=== PATIENT | male | born 1965 | race African-American/Black ===

== ENCOUNTER 2017-02-17 00:46 | Emergency (ER) | payer OTHER ==
[~2017-02-17] VITALS: Ht 172.7 cm; Wt 63.5 kg
[~2017-02-17 00:46] MED LIST: CARVEDILOL3.125 MG PO; DIABETA5 MG PO; GABAPENTIN300 MG; INSULIN; LANTUS 10100 UNITS/ SC; LISINOPRIL10 MG; LISINOPRIL5 MG PO; METFORMIN HCL1000 M1; NICOTINE PATCH1 EAC1 TD; PRAVASTATIN SOD40 MG PO; ULTRAM50 MG PO
[2017-02-17 00:54] LABS: POTASSIUM 3.8 mEq/L (3.7-5.4)
[2017-02-17 01:09] LABS: HEMATOCRIT 35.4 % (38.0-50.0); MCH 32.5 PG (29.0-34.0); MCV 92.9 FL (86-99); MEAN PLAT.VOLUME 10.8 uM^3 (9.0-12.4); PLATELET COUNT 177 K/uL (156-360); RBC DIS.WIDTH-CV 12.3 % (11.8-14.6); RBC DIS.WIDTH-SD 42.1 % (39-53); RED BLOOD COUNT 3.81 M/uL (4.00-5.50); WHITE BLOOD COUNT 8.2 K/uL (4.1-10.2)
[2017-02-17 01:19] LABS: CHLORIDE 107 mEq/L (99-109); POTASSIUM 3.8 mEq/L (3.7-5.4); SODIUM 138 mEq/L (136-147)
[2017-02-17 01:20] LABS: GLUCOSE 239 mg/dL (70-99)
[2017-02-17 01:22] LABS: ANION GAP 10 MEQ/L (2-14)
[2017-02-17 01:24] LABS: GFR ESTIMATE (CALCULATED) > 59 mL/min/
[2017-02-17 01:25] LABS: UREA NITROGEN (BUN) 25 mg/dL (9-23)
[2017-02-17 01:31] LABS: TROP-I INTERPRETATION NEGATIVE; TROPONIN-I < 0.01 ng/mL (0.0-0.30)
[2017-02-17 01:51] LABS: PROTHROMBIN TIME 10.6 (9.2-11.2); PTT 28.4 (25-32)
[2017-02-17 01:52] LABS: HDL CHOLESTEROL 66 MG/DL (Desirable>=40); LDL CHOLESTEROL 71 mg/dL (Desirable<100); NON-HDL CHOLESTEROL 97 mg/dL (Desirable<160); TOTAL CHOLESTEROL 163 mg/dL (Desirable<200); TRIGLYCERIDES 132 MG/DL (Normal: <150)
[2017-02-17 08:09] VITALS: BP 137/95
== END 2017-02-17 08:09 | disposition short-term general hospital (02) ==
LOC: EME → EDBD 00:46 → EME 08:09
PROVIDERS: Emergency Medicine
DX: I62.9 Nontraumatic intracranial hemorrhage, unspecified (principal); G81.91 Hemiplegia, unspecified affecting right dominant side; R29.726 NIHSS score 26; E11.65 Type 2 diabetes mellitus with hyperglycemia; Z79.4 Long term (current) use of insulin; D64.9 Anemia, unspecified; I10 Essential (primary) hypertension; F17.200 Nicotine dependence, unspecified, uncomplicated; Z89.512 Acquired absence of left leg below knee
CPT/HCPCS: 70450; 71010; 80047; 80048; 80061; 83605; 84484; 85027; 85610; 85730; 93005; 99281; 99285; J7030

== ENCOUNTER 2017-06-13 16:26 | Emergency (ER) | payer OTHER ==
[~2017-06-13] VITALS: Ht 167.6 cm; Wt 59.0 kg
[2017-06-13 18:43] VITALS: BP 101/70
== END 2017-06-13 18:44 | disposition home or self-care (01) ==
LOC: EME 16:26
DX: K94.23 Gastrostomy malfunction (principal); I10 Essential (primary) hypertension; Z86.73 Personal history of transient ischemic attack (TIA), and cerebral infarction without residual deficits; Z89.512 Acquired absence of left leg below knee; Z87.891 Personal history of nicotine dependence
CPT/HCPCS: 99281; 99283

== ENCOUNTER 2017-06-27 19:36 | Observation (INO) | payer OTHER ==
[~2017-06-27] VITALS: Ht 167.6 cm; Wt 55.0 kg
[2017-06-27 20:10] LABS: HEMATOCRIT 32.2 % (38.0-50.0); MCHC 34.2 G/DL (30.0-36.0); MCV 93.6 FL (86-99); MEAN PLAT.VOLUME 9.3 uM^3 (9.0-12.4); PLATELET COUNT 204 K/uL (156-360); RBC DIS.WIDTH-CV 12.7 % (11.8-14.6); RBC DIS.WIDTH-SD 43.5 % (39-53); RED BLOOD COUNT 3.44 M/uL (4.00-5.50); WHITE BLOOD COUNT 5.2 K/uL (4.1-10.2)
[2017-06-27 20:20] LABS: CHLORIDE 101 mEq/L (99-109); POTASSIUM 3.9 mEq/L (3.7-5.4); SODIUM 136 mEq/L (136-147)
[2017-06-27 20:22] LABS: GLUCOSE 284 mg/dL (70-99)
[2017-06-27 20:24] LABS: ANION GAP 9 MEQ/L (2-14)
[2017-06-27 20:26] LABS: GFR ESTIMATE (CALCULATED) > 59 mL/min/
[2017-06-27 20:27] LABS: UREA NITROGEN (BUN) 24 mg/dL (9-23)
[2017-06-27 20:30] LABS: TROP-I INTERPRETATION NEGATIVE; TROPONIN-I < 0.01 ng/mL (0.0-0.30)
[2017-06-27] MEDS ORDERED: FLUOXETINE HCL20 MG PO (21:29)
[2017-06-27] MEDS ORDERED: IRON325 M1 PO (21:29)
[2017-06-27] MEDS ORDERED: LITE COAT ASPI325 M1 PO (21:29)
[2017-06-27] MEDS ORDERED: ASCORBIC ACID500 M3 PO (21:30)
[2017-06-27] MEDS ORDERED: FAMOTIDINE20 MG PO (21:30)
[2017-06-27] MEDS ORDERED: FOLIC ACID1 MG PO (21:30)
[2017-06-27] MEDS ORDERED: LISINOPRIL2.5 MG PO (21:30)
[2017-06-28 00:23] VITALS: BP 95/55
[2017-06-28 03:37] LABS: TROP-I INTERPRETATION NEGATIVE; TROPONIN-I 0.02 ng/mL (0.0-0.30)
[2017-06-28 04:13] VITALS: BP 112/70
[2017-06-28 04:16] LABS: ADD MIUA? NO; BILIRUBIN NEGATIVE; BLOOD NEGATIVE; COLOR YELLOW ((YELLOW)); GLUCOSE (STRIP) >=500; KETONES NEGATIVE; LEUKOCYTES NEGATIVE; NITRITE NEGATIVE; PROTEIN (STRIP) NEGATIVE; SPECIFIC GRAVITY 1.021 (1.000-1.030); UCUL ADDED? NO; UROBILINOGEN 0.2 MG/DL (0.2-1.0)
[2017-06-28 04:57] LABS: AMPHETAMINES QUANT VALUE 0 NG/ML; BARBITUATES QUANT VALUE 0 NG/ML; BENZODIAZEPINES QUANT VALUE 0 NG/ML; BENZODIAZEPINES, URINE SCREEN Negative (200 ng/mL); MARIJUANA QUANT VALUE 0 NG/ML; OPIATES QUANTITATIVE VALUE 0 NG/ML; PHENCYCLIDINE QUANT VALUE 0 NG/ML
[2017-06-28 08:24] LABS: TROP-I INTERPRETATION NEGATIVE; TROPONIN-I < 0.01 ng/mL (0.0-0.30)
[2017-06-28 08:40] VITALS: BP 118/68
[2017-06-28 11:58] VITALS: BP 121/77
[2017-06-28 12:26] LABS: POINT-OF-CARE METER ID UU13113700
[2017-06-28 16:00] VITALS: BP 117/69
[2017-06-28 16:49] LABS: POINT-OF-CARE METER ID UU13113831
[2017-06-28 20:23] LABS: HDL CHOLESTEROL 71 MG/DL (Desirable>=40); LDL CHOLESTEROL 78 mg/dL (Desirable<100); NON-HDL CHOLESTEROL 87 mg/dL (Desirable<160); TOTAL CHOLESTEROL 158 mg/dL (Desirable<200); TRIGLYCERIDES 45 MG/DL (Normal: <150)
== END 2017-06-28 21:29 | disposition home or self-care (01) ==
LOC: EME 19:36 → EDOF 22:29 → 5WEST 22:29 → EDOF 22:29 → ENRESERV 22:32 → 5WEST 23:52
PROVIDERS: Hospitalist; Physician Assistant Medical
DX: R07.89 Other chest pain (principal); I11.0 Hypertensive heart disease with heart failure; I50.22 Chronic systolic (congestive) heart failure; R94.31 Abnormal electrocardiogram [ECG] [EKG]; I42.9 Cardiomyopathy, unspecified; I69.351 Hemiplegia and hemiparesis following cerebral infarction affecting right dominant side; I69.320 Aphasia following cerebral infarction; I73.9 Peripheral vascular disease, unspecified; E78.5 Hyperlipidemia, unspecified; E10.42 Type 1 diabetes mellitus with diabetic polyneuropathy; Z91.19 Patient's noncompliance with other medical treatment and regimen; N40.0 Benign prostatic hyperplasia without lower urinary tract symptoms; I07.1 Rheumatic tricuspid insufficiency; I34.0 Nonrheumatic mitral (valve) insufficiency; Z89.512 Acquired absence of left leg below knee; Z87.891 Personal history of nicotine dependence; Z87.898 Personal history of other specified conditions; Z79.4 Long term (current) use of insulin; Z79.82 Long term (current) use of aspirin
CPT/HCPCS: 71020; 80048; 80061; 80306 90; 81003; 82948; 84484; 85027; 93005; 99281; 99285; G0378; J1650; J1815

== ENCOUNTER 2017-07-10 11:19 | Emergency (ER) | payer OTHER ==
[~2017-07-10] VITALS: Ht 167.6 cm; Wt 60.3 kg
[~2017-07-10 11:19] MED LIST changes: +ASCORBIC ACID500 M3 PO; +FAMOTIDINE20 MG PO; +FLUOXETINE HCL20 MG PO; +FOLIC ACID1 MG PO; +IRON325 M1 PO; +LISINOPRIL2.5 MG PO; +LITE COAT ASPI325 M1 PO
[2017-07-10 13:28] VITALS: BP 140/93
== END 2017-07-10 15:26 | disposition home or self-care (01) ==
LOC: EME 11:19
DX: M25.511 Pain in right shoulder (principal); I10 Essential (primary) hypertension; E11.9 Type 2 diabetes mellitus without complications; Z79.4 Long term (current) use of insulin; Z86.73 Personal history of transient ischemic attack (TIA), and cerebral infarction without residual deficits; Z87.891 Personal history of nicotine dependence; Z89.512 Acquired absence of left leg below knee
CPT/HCPCS: 73030; 93005; 99281; 99283

== ENCOUNTER 2017-09-14 13:07 | Emergency (ER) | payer OTHER ==
[~2017-09-14] VITALS: Ht 167.6 cm; Wt 58.3 kg
[2017-09-14 15:20] LABS: EOSINOPHIL COUNT 0.1 K/uL (0-0.3); HEMATOCRIT 32.2 % (38.0-50.0); IMMATURE GRANULOCYTE (%) 0.3 % (0.0-0.7); INSTRUMENT ABS NEUTROPHIL CT 5.1 K/uL; LYMPHOCYTE COUNT 1.4 K/uL (1.0-2.8); MCHC 35.1 G/DL (30.0-36.0); MCV 94.2 FL (86-99); MEAN PLAT.VOLUME 9.9 uM^3 (9.0-12.4); MONOCYTE (%) 10.2 % (3-12); MONOCYTE COUNT 0.8 K/uL (0-0.8); NEUTROPHIL (%) 69.6 % (45-76); NEUTROPHIL COUNT 5.1 K/uL (1.8-6.4); PLATELET COUNT 273 K/uL (156-360); RBC DIS.WIDTH-CV 12.1 % (11.8-14.6); RBC DIS.WIDTH-SD 41.6 % (39-53); RED BLOOD COUNT 3.42 M/uL (4.00-5.50); WHITE BLOOD COUNT 7.4 K/uL (4.1-10.2)
[2017-09-14 15:33] LABS: CHLORIDE 102 mEq/L (99-109); POTASSIUM 4.1 mEq/L (3.7-5.4); SODIUM 141 mEq/L (136-147)
[2017-09-14 15:35] LABS: GLUCOSE 149 mg/dL (70-99)
[2017-09-14 15:37] LABS: ANION GAP 12 MEQ/L (2-14); TOTAL BILIRUBIN 0.6 mg/dL (0.0-1.0)
[2017-09-14 15:39] LABS: ALKALINE PHOSPHATASE 91 IU/L (3-129); GFR ESTIMATE (CALCULATED) > 59 mL/min/
[2017-09-14 15:40] LABS: UREA NITROGEN (BUN) 12 mg/dL (9-23)
[2017-09-14 15:43] LABS: LIPASE 2 U/L (1.0-51.0)
[2017-09-14 17:57] LABS: ADD MIUA? YES; BILIRUBIN NEGATIVE; BLOOD SMALL; COLOR YELLOW ((YELLOW)); GLUCOSE (STRIP) NEGATIVE; KETONES 5; LEUKOCYTES NEGATIVE; NITRITE NEGATIVE; PROTEIN (STRIP) 30
[2017-09-14] MEDS ORDERED: MIRALAX255 GM PO (18:10)
[2017-09-14 18:24] LABS: BACTERIA RARE /HPF; EPITHELIAL CELLS RARE /HPF; MUCUS TRACE /LPF; UCUL ADDED? NO; WHITE BLOOD CELLS 0-5 /HPF (0-5)
[2017-09-14 19:02] VITALS: BP 135/75
== END 2017-09-14 19:37 | disposition home or self-care (01) ==
LOC: EME 13:07
PROVIDERS: Emergency Medicine
DX: K59.00 Constipation, unspecified (principal); S72.001A Fracture of unspecified part of neck of right femur, initial encounter for closed fracture; X58.XXXA Exposure to other specified factors, initial encounter; I10 Essential (primary) hypertension; Z93.1 Gastrostomy status; Z89.512 Acquired absence of left leg below knee; Z86.73 Personal history of transient ischemic attack (TIA), and cerebral infarction without residual deficits; Z87.891 Personal history of nicotine dependence
CPT/HCPCS: 74177; 80053; 81003; 83605; 83690; 85025; 99281; 99285; J7030

== ENCOUNTER → 2017-10-10 | Outpatient (CLI) | payer OTHER ==
[~2017-10-10] MED LIST changes: +MIRALAX255 GM PO
== END | disposition home or self-care (01) ==
LOC: AMB 09-27 15:00
PROC: 0DP6XUZ Removal of Feeding Device from Stomach, External Approach (ICD-10-PCS; principal; 2017-10-10)
DX: Z43.1 Encounter for attention to gastrostomy (principal); Z86.73 Personal history of transient ischemic attack (TIA), and cerebral infarction without residual deficits; E11.9 Type 2 diabetes mellitus without complications; I10 Essential (primary) hypertension; Z89.619 Acquired absence of unspecified leg above knee; Z79.82 Long term (current) use of aspirin; Z79.4 Long term (current) use of insulin; F17.200 Nicotine dependence, unspecified, uncomplicated
CPT/HCPCS: 99211

== ENCOUNTER → 2017-10-17 | Outpatient (CLI) | payer OTHER | END | disposition home or self-care (01) | LOC: CDC 13:51 | DX: Z01.810 Encounter for preprocedural cardiovascular examination (principal); R00.0 Tachycardia, unspecified; I51.7 Cardiomegaly; R94.31 Abnormal electrocardiogram [ECG] [EKG] | CPT/HCPCS: 93000 ==

== ENCOUNTER 2017-10-23 16:00 | Inpatient (IN) | payer OTHER ==
[~2017-10-23] VITALS: Ht 175.3 cm; Wt 45.9 kg
[2017-10-23 17:12] LABS: MCHC 35.5 G/DL (30.0-36.0); MCV 90.1 FL (86-99); PLATELET COUNT 403 K/uL (156-360); RBC DIS.WIDTH-CV 13.2 % (11.8-14.6); RBC DIS.WIDTH-SD 42.5 % (39-53); RED BLOOD COUNT 3.44 M/uL (4.00-5.50); WHITE BLOOD COUNT 18.3 K/uL (4.1-10.2)
[2017-10-23 17:20] LABS: ALBUMIN 2.8 g/dL (3.2-4.8); CHLORIDE 106 mEq/L (99-109); SODIUM 146 mEq/L (136-147)
[2017-10-23 17:22] LABS: GLUCOSE 142 mg/dL (70-99)
[2017-10-23 17:23] LABS: TOTAL PROTEIN 9.6 g/dL (6.4-8.3)
[2017-10-23 17:24] LABS: TOTAL BILIRUBIN 0.5 mg/dL (0.0-1.0)
[2017-10-23 17:26] LABS: ALKALINE PHOSPHATASE 129 IU/L (3-129); CREATININE 0.8 mg/dL (0.6-1.3); GFR ESTIMATE (CALCULATED) > 59 mL/min/ (58.99-99999)
[2017-10-23 17:28] LABS: AST (GOT) 19 IU/L (2-34)
[2017-10-23 17:29] LABS: ALT (GPT) 16 IU/L (3-49); UREA NITROGEN (BUN) 42 mg/dL (9-23)
[2017-10-23 17:35] LABS: TROP-I INTERPRETATION NEGATIVE; TROPONIN-I < 0.01 ng/mL (0.0-0.30)
[2017-10-23 17:54] LABS: BASOPHIL (%) 0.1 % (0-1); EOSINOPHIL (%) 0 % (0-5); IMMATURE GRANULOCYTE (%) 0.9 % (0.0-0.7); LYMPHOCYTE (%) 6.4 % (15-42); LYMPHOCYTE COUNT 1.2 K/uL (1.0-2.8); MONOCYTE (%) 5.4 % (3-12); NEUTROPHIL (%) 87.2 % (45-76); PLAT.SUFFICIENCY INCREASED
[2017-10-23] MEDS ORDERED: VITAMIN D31000 UNIT PO (18:30)
[2017-10-24] VITALS: BP 128/58
[2017-10-24 07:18] LABS: HEMOGLOBIN 9.7 G/DL (12.5-16.6); MCHC 33.4 G/DL (30.0-36.0); MCV 92.7 FL (86-99); PLATELET COUNT 379 K/uL (156-360); RBC DIS.WIDTH-CV 13.6 % (11.8-14.6); RBC DIS.WIDTH-SD 44.7 % (39-53); RED BLOOD COUNT 3.13 M/uL (4.00-5.50); WHITE BLOOD COUNT 13.8 K/uL (4.1-10.2)
[2017-10-24 07:24] LABS: CHLORIDE 113 MEQ/L (99-109); CREATININE 0.5 MG/DL (0.6-1.3); GFR ESTIMATE (CALCULATED) > 59 mL/min/ (58.99-99999); POTASSIUM 3.3 MEQ/L (3.7-5.4); SODIUM 152 MEQ/L (136-147); UREA NITROGEN (BUN) 23 mg/dL (9-23)
[2017-10-24 07:28] LABS: GLUCOSE 79 mg/dL (70-99)
[2017-10-24 07:49] VITALS: BP 130/74
[2017-10-24 08:02] LABS: ABS NEUTROPHIL COUNT 12.5; BAND NEUTROPHILS 2.6 % (0-8.0); EOSINOPHIL ABS CT 0; LYMPHOCYTES 5.3 % (15.0-45.0); MONOCYTES 4.4 % (0-9.0); SEG.NEUTROPHILS 87.7 % (46.0-76.0)
[2017-10-24 16:17] VITALS: BP 101/57; BP 133/68
[2017-10-25] VITALS: BP 116/82
[2017-10-25 07:42] VITALS: BP 105/61
[2017-10-25 10:05] LABS: INTER. NORMALIZED RATIO 1.5
[2017-10-25 10:34] LABS: CREATININE 0.5 MG/DL (0.6-1.3); GFR ESTIMATE (CALCULATED) > 59 mL/min/ (58.99-99999); VANCOMYCIN, TROUGH 10.1 MCG/ML (10-20)
[2017-10-25 10:36] LABS: CHLORIDE 106 MEQ/L (99-109); CREATININE 0.4 MG/DL (0.6-1.3); GFR ESTIMATE (CALCULATED) > 59 mL/min/ (58.99-99999); GLUCOSE 202 mg/dL (70-99); SODIUM 147 MEQ/L (136-147); UREA NITROGEN (BUN) 8 mg/dL (9-23)
[2017-10-25 16:45] VITALS: BP 106/60
[2017-10-25 23:18] VITALS: BP 114/63
[2017-10-26 07:37] VITALS: BP 120/67
[2017-10-26 09:47] LABS: CHLORIDE 104 MEQ/L (99-109); CREATININE 0.3 MG/DL (0.6-1.3); GFR ESTIMATE (CALCULATED) > 59 mL/min/ (58.99-99999); GLUCOSE 192 mg/dL (70-99); POTASSIUM 3.2 MEQ/L (3.7-5.4); SODIUM 143 MEQ/L (136-147); UREA NITROGEN (BUN) 4 mg/dL (9-23)
[2017-10-26 10:40] LABS: HEMATOCRIT 27.4 % (38.0-50.0); HEMOGLOBIN 9.2 G/DL (12.5-16.6); MCH 31.9 PG (29.0-34.0); MCHC 33.6 G/DL (30.0-36.0); MCV 95.1 FL (86-99); PLATELET COUNT 325 K/uL (156-360); RBC DIS.WIDTH-CV 13.7 % (11.8-14.6); RBC DIS.WIDTH-SD 46.7 % (39-53); RED BLOOD COUNT 2.88 M/uL (4.00-5.50); WHITE BLOOD COUNT 8.6 K/uL (4.1-10.2)
[2017-10-26 16:39] VITALS: BP 123/73
[2017-10-26 22:54] VITALS: BP 123/73
[2017-10-27 06:38] LABS: CHLORIDE 97 MEQ/L (99-109); CREATININE 0.3 MG/DL (0.6-1.3); GFR ESTIMATE (CALCULATED) > 59 mL/min/ (58.99-99999); GLUCOSE 167 mg/dL (70-99); POTASSIUM 3.5 MEQ/L (3.7-5.4); SODIUM 137 MEQ/L (136-147); UREA NITROGEN (BUN) 3 mg/dL (9-23)
[2017-10-27 07:40] VITALS: BP 118/71
[2017-10-27 15:00] VITALS: BP 121/73
[2017-10-28 00:21] VITALS: BP 124/74
[2017-10-28 06:35] LABS: CHLORIDE 97 MEQ/L (99-109); CREATININE 0.4 MG/DL (0.6-1.3); GFR ESTIMATE (CALCULATED) > 59 mL/min/ (58.99-99999); GLUCOSE 187 mg/dL (70-99); POTASSIUM 3.6 MEQ/L (3.7-5.4); SODIUM 137 MEQ/L (136-147); UREA NITROGEN (BUN) 3 mg/dL (9-23)
[2017-10-28 08:24] VITALS: BP 123/77
[2017-10-28 18:18] LABS: HEMATOCRIT 33.5 % (38.0-50.0); MCH 31.6 PG (29.0-34.0); MCHC 33.4 G/DL (30.0-36.0); MCV 94.6 FL (86-99); PLATELET COUNT 350 K/uL (156-360); RBC DIS.WIDTH-CV 13.3 % (11.8-14.6); RBC DIS.WIDTH-SD 45.3 % (39-53); WHITE BLOOD COUNT 8.6 K/uL (4.1-10.2)
[2017-10-28 18:19] LABS: HEMOGLOBIN 11.2 G/DL (12.5-16.6); RED BLOOD COUNT 3.54 M/uL (4.00-5.50)
[2017-10-28 18:24] LABS: CHLORIDE 96 MEQ/L (99-109); CREATININE 0.5 MG/DL (0.6-1.3); GFR ESTIMATE (CALCULATED) > 59 mL/min/ (58.99-99999); GLUCOSE 147 mg/dL (70-99); MAGNESIUM 1.5 mg/dl (1.3-2.7); SODIUM 135 MEQ/L (136-147); UREA NITROGEN (BUN) 4 mg/dL (9-23)
[2017-10-28 18:27] LABS: POTASSIUM 4.4 MEQ/L (3.7-5.4)
[2017-10-28 18:30] VITALS: BP 106/73
[2017-10-28 20:00] VITALS: BP 89/56
[2017-10-29 00:16] VITALS: BP 125/77
[2017-10-29 04:12] VITALS: BP 119/74
[2017-10-29 07:08] VITALS: BP 119/77
[2017-10-29 10:17] LABS: ALBUMIN 2.4 g/dL (3.2-4.8); CHLORIDE 100 mEq/L (99-109); SODIUM 138 mEq/L (136-147)
[2017-10-29 10:19] LABS: GLUCOSE 196 mg/dL (70-99)
[2017-10-29 10:21] LABS: TOTAL BILIRUBIN 0.4 mg/dL (0.0-1.0)
[2017-10-29 10:22] LABS: TOTAL PROTEIN 7.5 g/dL (6.4-8.3)
[2017-10-29 10:23] LABS: ALKALINE PHOSPHATASE 91 IU/L (3-129); CREATININE 0.6 mg/dL (0.6-1.3); GFR ESTIMATE (CALCULATED) > 59 mL/min/ (58.99-99999)
[2017-10-29 10:24] LABS: UREA NITROGEN (BUN) 3 mg/dL (9-23)
[2017-10-29 10:25] LABS: AST (GOT) 17 IU/L (2-34)
[2017-10-29 10:26] LABS: ALT (GPT) 7 IU/L (3-49)
[2017-10-29 11:27] VITALS: BP 119/79
[2017-10-29 15:22] VITALS: BP 123/73
[2017-10-29 19:06] VITALS: BP 91/51
[2017-10-30 00:15] VITALS: BP 108/65
[2017-10-30 03:51] VITALS: BP 111/55
[2017-10-30 05:33] LABS: BASOPHIL (%) 0.1 % (0-1); EOSINOPHIL (%) 0.5 % (0-5); EOSINOPHIL COUNT 0.1 K/uL (0-0.3); HEMATOCRIT 28.1 % (38.0-50.0); HEMOGLOBIN 9.4 G/DL (12.5-16.6); IMMATURE GRANULOCYTE (%) 0.4 % (0.0-0.7); LYMPHOCYTE (%) 9.1 % (15-42); LYMPHOCYTE COUNT 1.4 K/uL (1.0-2.8); MCH 31.4 PG (29.0-34.0); MCHC 33.5 G/DL (30.0-36.0); MONOCYTE (%) 5.5 % (3-12); MONOCYTE COUNT 0.9 K/uL (0-0.8); NEUTROPHIL (%) 84.4 % (45-76); NEUTROPHIL COUNT 13.1 K/uL (1.8-6.4); PLATELET COUNT 261 K/uL (156-360); RBC DIS.WIDTH-CV 13.5 % (11.8-14.6); RBC DIS.WIDTH-SD 45.7 % (39-53); RED BLOOD COUNT 2.99 M/uL (4.00-5.50); WHITE BLOOD COUNT 15.6 K/uL (4.1-10.2)
[2017-10-30 06:02] LABS: CHLORIDE 99 MEQ/L (99-109); CREATININE 0.4 MG/DL (0.6-1.3); GFR ESTIMATE (CALCULATED) > 59 mL/min/ (58.99-99999); POTASSIUM 3.9 MEQ/L (3.7-5.4); SODIUM 137 MEQ/L (136-147); UREA NITROGEN (BUN) 4 mg/dL (9-23)
[2017-10-30 06:09] LABS: GLUCOSE 99 mg/dL (70-99)
[2017-10-30 08:26] VITALS: BP 107/65
[2017-10-30 12:00] VITALS: BP 111/53
[2017-10-30 16:21] VITALS: BP 129/89
[2017-10-30 19:15] VITALS: BP 131/74
[2017-10-31] VITALS (7 sets, daily range): BP systolic 109–138; BP diastolic 56–77
[2017-10-31 05:56] LABS: HEMATOCRIT 25.5 % (38.0-50.0); HEMOGLOBIN 8.6 G/DL (12.5-16.6); MCH 31.3 PG (29.0-34.0); MCHC 33.7 G/DL (30.0-36.0); MCV 92.7 FL (86-99); PLATELET COUNT 260 K/uL (156-360); RBC DIS.WIDTH-CV 13.5 % (11.8-14.6); RBC DIS.WIDTH-SD 45.1 % (39-53); RED BLOOD COUNT 2.75 M/uL (4.00-5.50); WHITE BLOOD COUNT 16.6 K/uL (4.1-10.2)
[2017-10-31 06:26] LABS: CHLORIDE 97 MEQ/L (99-109); CREATININE 0.3 MG/DL (0.6-1.3); GFR ESTIMATE (CALCULATED) > 59 mL/min/ (58.99-99999); GLUCOSE 155 mg/dL (70-99); POTASSIUM 3.5 MEQ/L (3.7-5.4); SODIUM 133 MEQ/L (136-147); UREA NITROGEN (BUN) 3 mg/dL (9-23)
[2017-10-31 07:00] LABS: ANISOCYTOSIS 1+; BASOPHIL (%) 0.1 % (0-1); EOSINOPHIL (%) 0.2 % (0-5); IMMATURE GRANULOCYTE (%) 0.8 % (0.0-0.7); LYMPHOCYTE (%) 4.5 % (15-42); LYMPHOCYTE COUNT 0.7 K/uL (1.0-2.8); MACROCYTES 1+; MONOCYTE (%) 3.4 % (3-12); MONOCYTE COUNT 0.6 K/uL (0-0.8); NEUTROPHIL COUNT 15.1 K/uL (1.8-6.4)
[2017-10-31 08:39] LABS: FERRITIN 1172 NG/ML (22-322)
[2017-10-31 10:00] LABS: IRON 16 MCG/DL (35-150); TRANSFERRIN SATUR. 21 % (20-55)
[2017-10-31 11:28] LABS: INTER. NORMALIZED RATIO 1.5
[2017-10-31 12:27] LABS: FOLIC ACID (FOLATE) 5.7 NG/ML (5.0-22.0)
[2017-11-01 03:36] VITALS: BP 124/68
[2017-11-01 05:51] LABS: BASOPHIL (%) 0.2 % (0-1); EOSINOPHIL (%) 0.5 % (0-5); EOSINOPHIL COUNT 0.1 K/uL (0-0.3); HEMATOCRIT 25.5 % (38.0-50.0); HEMOGLOBIN 8.8 G/DL (12.5-16.6); IMMATURE GRANULOCYTE (%) 0.5 % (0.0-0.7); LYMPHOCYTE (%) 7.6 % (15-42); MCHC 34.5 G/DL (30.0-36.0); MCV 92.7 FL (86-99); MONOCYTE (%) 4.3 % (3-12); MONOCYTE COUNT 0.5 K/uL (0-0.8); NEUTROPHIL (%) 86.9 % (45-76); NEUTROPHIL COUNT 11.1 K/uL (1.8-6.4); PLATELET COUNT 273 K/uL (156-360); RBC DIS.WIDTH-CV 13.7 % (11.8-14.6); RBC DIS.WIDTH-SD 44.8 % (39-53); RED BLOOD COUNT 2.75 M/uL (4.00-5.50); WHITE BLOOD COUNT 12.7 K/uL (4.1-10.2)
[2017-11-01 06:18] LABS: ALBUMIN 1.8 G/DL (3.2-4.8); ALKALINE PHOSPHATASE 96 IU/L (3-129); ALT (GPT) 3 IU/L (3-49); AST (GOT) 10 IU/L (2-34); CHLORIDE 98 MEQ/L (99-109); CREATININE 0.3 MG/DL (0.6-1.3); GFR ESTIMATE (CALCULATED) > 59 mL/min/ (58.99-99999); GLUCOSE 137 mg/dL (70-99); POTASSIUM 3.4 MEQ/L (3.7-5.4); SODIUM 137 MEQ/L (136-147); TOTAL BILIRUBIN 0.3 MG/DL (0.0-1.0); TOTAL PROTEIN 6.1 G/DL (6.4-8.3); UREA NITROGEN (BUN) 3 mg/dL (9-23)
[2017-11-01 07:09] VITALS: BP 116/69
[2017-11-01 11:46] LABS: MAGNESIUM 1.8 mg/dl (1.3-2.7)
[2017-11-01 11:48] VITALS: BP 116/70
[2017-11-01 16:02] VITALS: BP 102/89
[2017-11-01 19:26] VITALS: BP 118/58
[2017-11-02] VITALS (7 sets, daily range): BP systolic 96–147; BP diastolic 56–87
[2017-11-02 04:17] LABS: C DIFF TOXIN NEGATIVE (NEGATIVE)
[2017-11-02 08:17] LABS: HEMOGLOBIN 8.3 G/DL (12.5-16.6); MCH 30.4 PG (29.0-34.0); MCHC 33.2 G/DL (30.0-36.0); MCV 91.6 FL (86-99); PLATELET COUNT 319 K/uL (156-360); RBC DIS.WIDTH-CV 13.5 % (11.8-14.6); RBC DIS.WIDTH-SD 44.5 % (39-53); RED BLOOD COUNT 2.73 M/uL (4.00-5.50); WHITE BLOOD COUNT 10.4 K/uL (4.1-10.2)
[2017-11-02 08:44] LABS: CHLORIDE 96 MEQ/L (99-109); CREATININE 0.3 MG/DL (0.6-1.3); GFR ESTIMATE (CALCULATED) > 59 mL/min/ (58.99-99999); GLUCOSE 187 mg/dL (70-99); POTASSIUM 3.9 MEQ/L (3.7-5.4); UREA NITROGEN (BUN) 3 mg/dL (9-23)
[2017-11-02 08:57] LABS: SODIUM 130 MEQ/L (136-147)
[2017-11-03 04:51] VITALS: BP 107/58
[2017-11-03 07:10] LABS: HEMATOCRIT 24.2 % (38.0-50.0); HEMOGLOBIN 8.1 G/DL (12.5-16.6); IMM.RETIC FRACTION 23.1 % (3-19); MCH 31.3 PG (29.0-34.0); MCHC 33.5 G/DL (30.0-36.0); MCV 93.4 FL (86-99); PLATELET COUNT 243 K/uL (156-360); RBC DIS.WIDTH-CV 13.7 % (11.8-14.6); RED BLOOD COUNT 2.59 M/uL (4.00-5.50); RETIC HGB EQUIVALENT 28.1 (28-36); RETICULOCYTE COUNT 2.1 % (0.5-1.8); WHITE BLOOD COUNT 8.6 K/uL (4.1-10.2)
[2017-11-03 07:11] VITALS: BP 102/55
[2017-11-03 07:28] LABS: CHLORIDE 96 MEQ/L (99-109); CREATININE 0.3 MG/DL (0.6-1.3); GFR ESTIMATE (CALCULATED) > 59 mL/min/ (58.99-99999); GLUCOSE 154 mg/dL (70-99); POTASSIUM 3.8 MEQ/L (3.7-5.4); SODIUM 133 MEQ/L (136-147); UREA NITROGEN (BUN) 5 mg/dL (9-23)
[2017-11-03 14:09] VITALS: BP 130/67
[2017-11-03 15:26] VITALS: BP 112/58
[2017-11-03 19:35] VITALS: BP 106/58
[2017-11-04 00:52] VITALS: BP 99/57
[2017-11-04 07:10] LABS: HEMATOCRIT 26.1 % (38.0-50.0); HEMOGLOBIN 8.7 G/DL (12.5-16.6); MCH 31.2 PG (29.0-34.0); MCHC 33.3 G/DL (30.0-36.0); MCV 93.5 FL (86-99); RBC DIS.WIDTH-CV 13.7 % (11.8-14.6); RBC DIS.WIDTH-SD 45.8 % (39-53); RED BLOOD COUNT 2.79 M/uL (4.00-5.50); WHITE BLOOD COUNT 8.1 K/uL (4.1-10.2)
[2017-11-04 07:14] VITALS: BP 117/65
[2017-11-04 07:33] LABS: CHLORIDE 96 MEQ/L (99-109); CREATININE 0.3 MG/DL (0.6-1.3); GFR ESTIMATE (CALCULATED) > 59 mL/min/ (58.99-99999); GLUCOSE 209 mg/dL (70-99); POTASSIUM 4.1 MEQ/L (3.7-5.4); SODIUM 134 MEQ/L (136-147); UREA NITROGEN (BUN) 8 mg/dL (9-23)
[2017-11-04 07:44] LABS: PLATELET COUNT 369 K/uL (156-360)
[2017-11-04 14:58] VITALS: BP 123/68
[2017-11-04 23:36] VITALS: BP 113/56
[2017-11-05 07:33] VITALS: BP 108/63
[2017-11-05] MEDS ORDERED: PRAVASTATIN SOD40 MG GT (13:08)
[2017-11-05] MEDS ORDERED: LEVETIRACE100 MG/1 M GT (13:19)
[2017-11-05] MEDS ORDERED: NOVOLOG PE100 UNITS/ SC (13:20)
[2017-11-05] MEDS ORDERED: ANCEF,KEFZOL1 GM IM (13:20)
[2017-11-05 15:13] VITALS: BP 130/68
[2017-11-05 15:30] VITALS: BP 183/71
== END 2017-11-05 16:41 | DRG 871 ==
LOC: EME 16:00 → 5SOUTH 18:21 → 5EAST 18:21 → EDOF 18:21 → 4EAST 18:21 → ENRESERV 19:03 → 5EAST 21:03 → ENRESERV 10-28 18:14 → 4EAST 10-28 18:17 → ENRESERV 11-02 20:01 → 5SOUTH 11-02 22:07
PROVIDERS: Emergency Medicine; Hospitalist; Internal Medicine; Specialist; Student in an Organized Health Care Education/Training Program
PROC: 0DH63UZ Insertion of Feeding Device into Stomach, Percutaneous Approach (ICD-10-PCS; principal; 2017-10-31)
DX: A41.9 Sepsis, unspecified organism (principal); J69.0 Pneumonitis due to inhalation of food and vomit; R13.10 Dysphagia, unspecified; E11.622 Type 2 diabetes mellitus with other skin ulcer; E87.0 Hyperosmolality and hypernatremia; E11.51 Type 2 diabetes mellitus with diabetic peripheral angiopathy without gangrene; I08.1 Rheumatic disorders of both mitral and tricuspid valves; T87.89 Other complications of amputation stump; B37.0 Candidal stomatitis; E86.0 Dehydration; E46 Unspecified protein-calorie malnutrition; I10 Essential (primary) hypertension; E55.9 Vitamin D deficiency, unspecified; L89.029 Pressure ulcer of left elbow, unspecified stage; L97.929 Non-pressure chronic ulcer of unspecified part of left lower leg with unspecified severity; J44.9 Chronic obstructive pulmonary disease, unspecified; D63.8 Anemia in other chronic diseases classified elsewhere; R62.7 Adult failure to thrive; Z68.1 Body mass index [BMI] 19.9 or less, adult; E78.5 Hyperlipidemia, unspecified; Y95 Nosocomial condition; N40.1 Benign prostatic hyperplasia with lower urinary tract symptoms; Y83.5 Amputation of limb(s) as the cause of abnormal reaction of the patient, or of later complication, without mention of misadventure at the time of the procedure; Z87.891 Personal history of nicotine dependence; E87.1 Hypo-osmolality and hyponatremia; E87.6 Hypokalemia; G81.91 Hemiplegia, unspecified affecting right dominant side; I63.9 Cerebral infarction, unspecified; R47.01 Aphasia; R64 Cachexia; J98.11 Atelectasis; D50.9 Iron deficiency anemia, unspecified; I61.9 Nontraumatic intracerebral hemorrhage, unspecified; R56.9 Unspecified convulsions; S91.301A Unspecified open wound, right foot, initial encounter; Z86.73 Personal history of transient ischemic attack (TIA), and cerebral infarction without residual deficits; F32.9 Major depressive disorder, single episode, unspecified; Z89.512 Acquired absence of left leg below knee; Z74.01 Bed confinement status
CPT/HCPCS: 70450; 71045; 71046; 80048; 80048 91; 80053; 80202; 81003; 81256 90; 82565; 82607; 82728; 82746; 82948; 83540; 83605; 83735; 84466; 84484; 85025; 85027; 85046; 85610; 87040; 87077; 87186; 87493; 87502; 87801; 92526 GN; 92610 GN; 93005; 94799; 95819; 99202; 99281; 99284; A6260; C1753; J0690; J1450; J1650; J1815; J1953; J2060; J2543; J3370; J3475; J3480; J7030; J7050

== ENCOUNTER 2018-01-23 10:57 | Inpatient (IN) | payer OTHER ==
[~2018-01-23] VITALS: Ht 165.1 cm; Wt 38.7 kg
[~2018-01-23 10:57] MED LIST changes: +ANCEF,KEFZOL1 GM IM; +LEVETIRACE100 MG/1 M GT; +NOVOLOG PE100 UNITS/ SC; +PRAVASTATIN SOD40 MG GT; +VITAMIN D31000 UNIT PO
[2018-01-23 12:21] LABS: HEMATOCRIT 31.6 % (38.0-50.0); HEMOGLOBIN 10.6 G/DL (12.5-16.6); MCH 30.9 PG (29.0-34.0); MCHC 33.5 G/DL (30.0-36.0); MCV 92.1 FL (86-99); PLATELET COUNT 354 K/uL (156-360); RBC DIS.WIDTH-CV 14.6 % (11.8-14.6); RBC DIS.WIDTH-SD 49.7 % (39-53); RED BLOOD COUNT 3.43 M/uL (4.00-5.50); WHITE BLOOD COUNT 7.6 K/uL (4.1-10.2)
[2018-01-23 12:30] LABS: ALBUMIN 3.6 g/dL (3.2-4.8)
[2018-01-23 12:31] LABS: CHLORIDE 101 mEq/L (99-109); POTASSIUM 4.2 mEq/L (3.7-5.4); SODIUM 138 mEq/L (136-147)
[2018-01-23 12:33] LABS: TOTAL PROTEIN 8.9 g/dL (6.4-8.3)
[2018-01-23 12:35] LABS: TOTAL BILIRUBIN 0.2 mg/dL (0.0-1.0)
[2018-01-23 12:36] LABS: ALKALINE PHOSPHATASE 115 IU/L (3-129)
[2018-01-23 12:37] LABS: CREATININE 0.6 mg/dL (0.6-1.3); GFR ESTIMATE (CALCULATED) > 59 mL/min/ (58.99-99999)
[2018-01-23 12:38] LABS: AST (GOT) 18 IU/L (2-34); UREA NITROGEN (BUN) 9 mg/dL (9-23)
[2018-01-23 12:39] LABS: ALT (GPT) 16 IU/L (3-49)
[2018-01-23 12:41] LABS: GLUCOSE 51 mg/dL (70-99)
[2018-01-23 13:21] LABS: C-REACTIVE PROTEIN 58.3 MG/L (0-10)
[2018-01-23] MEDS ORDERED: TRAMADOL HCL50 MG GT (15:16)
[2018-01-23] MEDS ORDERED: KEPPRA100 MG/1 M GT (15:16)
[2018-01-23] MEDS ORDERED: PLAVIX75 MG GT (15:17)
[2018-01-23] MEDS ORDERED: MELATONIN5 M1 GT (15:17)
[2018-01-23] MEDS ORDERED: CHOLESTYRAMINE P4 GM GT (15:17)
[2018-01-23] MEDS ORDERED: METFORMIN HCL500 MG GT (15:17)
[2018-01-23] MEDS ORDERED: LANTUS 3 M100 UNITS1 SC (15:17)
[2018-01-23] MEDS ORDERED: TRAZODONE HCL50 MG GT (15:18)
[2018-01-23 17:43] VITALS: BP 95/59
[2018-01-23 19:56] VITALS: BP 100/63
[2018-01-24 00:58] VITALS: BP 105/59
[2018-01-24 03:59] VITALS: BP 88/54
[2018-01-24 06:26] LABS: HEMATOCRIT 27.5 % (38.0-50.0); HEMOGLOBIN 8.8 G/DL (12.5-16.6); MCH 29.5 PG (29.0-34.0); MCV 92.3 FL (86-99); PLATELET COUNT 269 K/uL (156-360); RBC DIS.WIDTH-CV 14.8 % (11.8-14.6); RBC DIS.WIDTH-SD 49.7 % (39-53); RED BLOOD COUNT 2.98 M/uL (4.00-5.50); WHITE BLOOD COUNT 5.2 K/uL (4.1-10.2)
[2018-01-24 07:46] VITALS: BP 105/58
[2018-01-24 07:52] LABS: CHLORIDE 105 MEQ/L (99-109); CREATININE 0.6 MG/DL (0.6-1.3); GFR ESTIMATE (CALCULATED) > 59 mL/min/ (58.99-99999); GLUCOSE 57 mg/dL (70-99); POTASSIUM 3.4 MEQ/L (3.7-5.4); PREALBUMIN 12.2 mg/dL (10-40); SODIUM 139 MEQ/L (136-147); UREA NITROGEN (BUN) 7 mg/dL (9-23)
[2018-01-24 10:51] LABS: HEMOGLOBIN A1c (GLYCOHEMOGLOB) 4.8 % (Below 5.7)
[2018-01-24 11:42] VITALS: BP 110/58
[2018-01-24 19:44] VITALS: BP 98/53
[2018-01-24 23:09] VITALS: BP 103/50
[2018-01-25 04:08] VITALS: BP 102/54
[2018-01-25 06:51] LABS: HEMATOCRIT 27.3 % (38.0-50.0); HEMOGLOBIN 9.1 G/DL (12.5-16.6); MCH 31.1 PG (29.0-34.0); MCHC 33.3 G/DL (30.0-36.0); MCV 93.2 FL (86-99); PLATELET COUNT 273 K/uL (156-360); RBC DIS.WIDTH-CV 14.8 % (11.8-14.6); RBC DIS.WIDTH-SD 50.5 % (39-53); RED BLOOD COUNT 2.93 M/uL (4.00-5.50); WHITE BLOOD COUNT 5.4 K/uL (4.1-10.2)
[2018-01-25 06:52] LABS: CHLORIDE 107 MEQ/L (99-109); CREATININE 0.8 MG/DL (0.6-1.3); GFR ESTIMATE (CALCULATED) > 59 mL/min/ (58.99-99999); POTASSIUM 3.1 MEQ/L (3.7-5.4); SODIUM 139 MEQ/L (136-147); UREA NITROGEN (BUN) 7 mg/dL (9-23)
[2018-01-25 06:55] LABS: GLUCOSE 131 mg/dL (70-99)
[2018-01-25 07:47] VITALS: BP 114/61
[2018-01-25 12:01] VITALS: BP 106/57
[2018-01-25 16:00] VITALS: BP 112/65
[2018-01-25 19:40] VITALS: BP 117/56
[2018-01-25 19:49] LABS: C DIFF TOXIN ND (NEGATIVE)
[2018-01-25 23:59] VITALS: BP 123/56
[2018-01-26 03:36] VITALS: BP 127/60
[2018-01-26 07:16] VITALS: BP 117/65
[2018-01-26 07:16] LABS: HEMATOCRIT 24.6 % (38.0-50.0); HEMOGLOBIN 8.1 G/DL (12.5-16.6); MCH 30.3 PG (29.0-34.0); MCHC 32.9 G/DL (30.0-36.0); MCV 92.1 FL (86-99); NRBC (%) 0.3 /100 WBC (0-0); PLATELET COUNT 258 K/uL (156-360); RBC DIS.WIDTH-CV 14.6 % (11.8-14.6); RBC DIS.WIDTH-SD 49.1 % (39-53); RED BLOOD COUNT 2.67 M/uL (4.00-5.50); WHITE BLOOD COUNT 6.7 K/uL (4.1-10.2)
[2018-01-26 07:38] LABS: CHLORIDE 108 MEQ/L (99-109); CREATININE 0.7 MG/DL (0.6-1.3); GFR ESTIMATE (CALCULATED) > 59 mL/min/ (58.99-99999); GLUCOSE 190 mg/dL (70-99); POTASSIUM 3.4 MEQ/L (3.7-5.4); SODIUM 138 MEQ/L (136-147); UREA NITROGEN (BUN) 10 mg/dL (9-23)
[2018-01-26 10:11] LABS: MAGNESIUM 1.4 mg/dl (1.3-2.7)
[2018-01-26 10:41] LABS: C DIFF TOXIN ND (NEGATIVE)
[2018-01-26 11:38] VITALS: BP 119/64
[2018-01-26 14:53] LABS: HEMATOCRIT 24.4 % (38.0-50.0); MCV 92.1 FL (86-99)
[2018-01-26 15:27] VITALS: BP 110/59
[2018-01-26 19:52] VITALS: BP 116/65
[2018-01-27] VITALS (7 sets, daily range): BP systolic 101–124; BP diastolic 54–69
[2018-01-27 06:49] LABS: HEMATOCRIT 25.1 % (38.0-50.0); HEMOGLOBIN 8.1 G/DL (12.5-16.6); MCH 29.6 PG (29.0-34.0); MCHC 32.3 G/DL (30.0-36.0); MCV 91.6 FL (86-99); PLATELET COUNT 250 K/uL (156-360); RBC DIS.WIDTH-CV 14.7 % (11.8-14.6); RBC DIS.WIDTH-SD 49.4 % (39-53); RED BLOOD COUNT 2.74 M/uL (4.00-5.50); WHITE BLOOD COUNT 5.7 K/uL (4.1-10.2)
[2018-01-27 07:01] LABS: CHLORIDE 107 MEQ/L (99-109); POTASSIUM 3.9 MEQ/L (3.7-5.4); SODIUM 138 MEQ/L (136-147)
[2018-01-27 07:19] LABS: CREATININE 0.6 MG/DL (0.6-1.3); GFR ESTIMATE (CALCULATED) > 59 mL/min/ (58.99-99999); GLUCOSE 165 mg/dL (70-99); UREA NITROGEN (BUN) 8 mg/dL (9-23)
[2018-01-27 18:03] LABS: TROP-I INTERPRETATION NEGATIVE; TROPONIN-I 0.01 ng/mL (0.0-0.30)
[2018-01-28] VITALS (7 sets, daily range): BP systolic 107–129; BP diastolic 52–71
[2018-01-28 06:10] LABS: BASOPHIL (%) 0.3 % (0-1); EOSINOPHIL (%) 0.3 % (0-5); HEMATOCRIT 23.8 % (38.0-50.0); HEMOGLOBIN 7.7 G/DL (12.5-16.6); IMMATURE GRANULOCYTE (%) 0.3 % (0.0-0.7); LYMPHOCYTE (%) 18.4 % (15-42); LYMPHOCYTE COUNT 1.2 K/uL (1.0-2.8); MCHC 32.4 G/DL (30.0-36.0); MCV 92.6 FL (86-99); MONOCYTE (%) 4.9 % (3-12); MONOCYTE COUNT 0.3 K/uL (0-0.8); NEUTROPHIL (%) 75.8 % (45-76); NEUTROPHIL COUNT 5.1 K/uL (1.8-6.4); PLATELET COUNT 241 K/uL (156-360); RBC DIS.WIDTH-CV 14.8 % (11.8-14.6); RBC DIS.WIDTH-SD 50.4 % (39-53); RED BLOOD COUNT 2.57 M/uL (4.00-5.50); WHITE BLOOD COUNT 6.7 K/uL (4.1-10.2)
[2018-01-28 06:13] LABS: TROP-I INTERPRETATION NEGATIVE; TROPONIN-I < 0.01 ng/mL (0.0-0.30)
[2018-01-28 06:19] LABS: CHLORIDE 105 MEQ/L (99-109); CREATININE 0.8 MG/DL (0.6-1.3); GFR ESTIMATE (CALCULATED) > 59 mL/min/ (58.99-99999); MAGNESIUM 1.6 mg/dl (1.3-2.7); POTASSIUM 3.7 MEQ/L (3.7-5.4); SODIUM 136 MEQ/L (136-147); UREA NITROGEN (BUN) 11 mg/dL (9-23)
[2018-01-28 06:26] LABS: GLUCOSE 317 mg/dL (70-99)
[2018-01-29] VITALS (14 sets, daily range): BP systolic 119–147; BP diastolic 61–81
[2018-01-29 06:44] LABS: BASOPHIL (%) 0.4 % (0-1); EOSINOPHIL (%) 2.3 % (0-5); EOSINOPHIL COUNT 0.2 K/uL (0-0.3); HEMATOCRIT 21.1 % (38.0-50.0); IMMATURE GRANULOCYTE (%) 0.3 % (0.0-0.7); LYMPHOCYTE (%) 18.9 % (15-42); LYMPHOCYTE COUNT 1.3 K/uL (1.0-2.8); MCH 30.5 PG (29.0-34.0); MCHC 32.7 G/DL (30.0-36.0); MCV 93.4 FL (86-99); MONOCYTE (%) 11.6 % (3-12); MONOCYTE COUNT 0.8 K/uL (0-0.8); NEUTROPHIL (%) 66.5 % (45-76); NEUTROPHIL COUNT 4.7 K/uL (1.8-6.4); PLATELET COUNT 221 K/uL (156-360); RBC DIS.WIDTH-CV 14.8 % (11.8-14.6); RBC DIS.WIDTH-SD 51.4 % (39-53); RED BLOOD COUNT 2.26 M/uL (4.00-5.50); WHITE BLOOD COUNT 7.1 K/uL (4.1-10.2)
[2018-01-29 06:45] LABS: HEMOGLOBIN 6.9 G/DL (12.5-16.6)
[2018-01-29 07:07] LABS: CHLORIDE 110 MEQ/L (99-109); CREATININE 0.5 MG/DL (0.6-1.3); GFR ESTIMATE (CALCULATED) > 59 mL/min/ (58.99-99999); POTASSIUM 3.2 MEQ/L (3.7-5.4); SODIUM 139 MEQ/L (136-147); UREA NITROGEN (BUN) 8 mg/dL (9-23)
[2018-01-29 07:09] LABS: GLUCOSE 144 mg/dL (70-99)
[2018-01-29 21:06] LABS: HEMATOCRIT 25.9 % (38.0-50.0); HEMOGLOBIN 8.7 G/DL (12.5-16.6)
[2018-01-29 21:09] LABS: MCV 87.5 FL (86-99)
[2018-01-30 05:38] LABS: BASOPHIL (%) 0.5 % (0-1); BASOPHIL COUNT 0.1 K/uL (0-0.1); EOSINOPHIL (%) 2.2 % (0-5); EOSINOPHIL COUNT 0.3 K/uL (0-0.3); IMMATURE GRANULOCYTE (%) 0.3 % (0.0-0.7); LYMPHOCYTE COUNT 1.3 K/uL (1.0-2.8); MCHC 33.3 G/DL (30.0-36.0); MCV 87.1 FL (86-99); MONOCYTE (%) 11.1 % (3-12); MONOCYTE COUNT 1.2 K/uL (0-0.8); NEUTROPHIL (%) 73.9 % (45-76); NEUTROPHIL COUNT 8.2 K/uL (1.8-6.4); PLATELET COUNT 212 K/uL (156-360); RBC DIS.WIDTH-CV 18.6 % (11.8-14.6); RBC DIS.WIDTH-SD 59.3 % (39-53); WHITE BLOOD COUNT 11.1 K/uL (4.1-10.2)
[2018-01-30 07:24] LABS: CHLORIDE 107 MEQ/L (99-109); CREATININE 0.5 MG/DL (0.6-1.3); GFR ESTIMATE (CALCULATED) > 59 mL/min/ (58.99-99999); GLUCOSE 144 mg/dL (70-99); POTASSIUM 3.7 MEQ/L (3.7-5.4); SODIUM 138 MEQ/L (136-147); UREA NITROGEN (BUN) 9 mg/dL (9-23)
[2018-01-30 07:35] VITALS: BP 140/65
[2018-01-30 15:48] VITALS: BP 118/57
[2018-01-30 23:51] VITALS: BP 132/59
[2018-01-31 07:10] VITALS: BP 128/59
[2018-01-31 09:33] LABS: HEMATOCRIT 27.9 % (38.0-50.0); HEMOGLOBIN 9.1 G/DL (12.5-16.6); MCH 29.3 PG (29.0-34.0); MCHC 32.6 G/DL (30.0-36.0); MCV 89.7 FL (86-99); PLATELET COUNT 250 K/uL (156-360); RBC DIS.WIDTH-CV 18.6 % (11.8-14.6); RBC DIS.WIDTH-SD 60.1 % (39-53); RED BLOOD COUNT 3.11 M/uL (4.00-5.50); WHITE BLOOD COUNT 11.1 K/uL (4.1-10.2)
[2018-01-31 10:19] LABS: CHLORIDE 107 MEQ/L (99-109); CREATININE 0.5 MG/DL (0.6-1.3); GFR ESTIMATE (CALCULATED) > 59 mL/min/ (58.99-99999); GLUCOSE 133 mg/dL (70-99); POTASSIUM 3.9 MEQ/L (3.7-5.4); SODIUM 139 MEQ/L (136-147); UREA NITROGEN (BUN) 10 mg/dL (9-23)
[2018-01-31 15:07] VITALS: BP 141/68
[2018-02-01] VITALS: BP 132/70
[2018-02-01 08:20] VITALS: BP 130/70
[2018-02-01] MEDS ORDERED: TRAMADOL HCL50 MG GT (11:59)
[2018-02-01] MEDS ORDERED: LEVEMIR100 UNIT/2 SC (11:59)
[2018-02-01 16:55] VITALS: BP 143/79
[2018-02-02 00:27] VITALS: BP 122/60
[2018-02-02 08:17] VITALS: BP 139/72
[2018-02-02 11:09] LABS: HEMATOCRIT 26.6 % (38.0-50.0); HEMOGLOBIN 8.7 G/DL (12.5-16.6); MCV 88.7 FL (86-99)
[2018-02-02 17:06] VITALS: BP 122/72
[2018-02-03 00:09] VITALS: BP 134/71
[2018-02-03 07:15] LABS: BASOPHIL (%) 0.4 % (0-1); EOSINOPHIL (%) 2.2 % (0-5); EOSINOPHIL COUNT 0.2 K/uL (0-0.3); HEMOGLOBIN 8.6 G/DL (12.5-16.6); IMMATURE GRANULOCYTE (%) 0.3 % (0.0-0.7); LYMPHOCYTE (%) 17.8 % (15-42); LYMPHOCYTE COUNT 1.4 K/uL (1.0-2.8); MCH 28.1 PG (29.0-34.0); MCHC 31.9 G/DL (30.0-36.0); MCV 88.2 FL (86-99); MONOCYTE COUNT 0.7 K/uL (0-0.8); NEUTROPHIL (%) 70.3 % (45-76); NEUTROPHIL COUNT 5.5 K/uL (1.8-6.4); PLATELET COUNT 313 K/uL (156-360); RBC DIS.WIDTH-CV 17.3 % (11.8-14.6); RBC DIS.WIDTH-SD 54.3 % (39-53); RED BLOOD COUNT 3.06 M/uL (4.00-5.50); WHITE BLOOD COUNT 7.9 K/uL (4.1-10.2)
[2018-02-03 07:34] VITALS: BP 128/82
[2018-02-03 16:03] VITALS: BP 113/58
== END 2018-02-03 16:39 | disposition home health service (06) | DRG 239 ==
LOC: EME 10:57 → 5SOUTH 15:04 → EDOF 15:04 → ENRESERV 15:05 → 5SOUTH 17:12
PROVIDERS: Emergency Medicine; Family Medicine; Hospitalist; Internal Medicine; Physician Assistant Medical; Surgery
PROC: 0Y6H0Z1 Detachment at Right Lower Leg, High, Open Approach (ICD-10-PCS; principal; 2018-01-27)
PROC: 30233N1 Transfusion of Nonautologous Red Blood Cells into Peripheral Vein, Percutaneous Approach (ICD-10-PCS; 2018-01-29)
DX: E11.52 Type 2 diabetes mellitus with diabetic peripheral angiopathy with gangrene (principal); A48.0 Gas gangrene; E11.69 Type 2 diabetes mellitus with other specified complication; M86.171 Other acute osteomyelitis, right ankle and foot; M86.671 Other chronic osteomyelitis, right ankle and foot; B95.1 Streptococcus, group B, as the cause of diseases classified elsewhere; B95.61 Methicillin susceptible Staphylococcus aureus infection as the cause of diseases classified elsewhere; I70.261 Atherosclerosis of native arteries of extremities with gangrene, right leg; L97.514 Non-pressure chronic ulcer of other part of right foot with necrosis of bone; E11.649 Type 2 diabetes mellitus with hypoglycemia without coma; E83.42 Hypomagnesemia; E87.6 Hypokalemia; D64.9 Anemia, unspecified; R62.7 Adult failure to thrive; R13.10 Dysphagia, unspecified; Z68.1 Body mass index [BMI] 19.9 or less, adult; Z93.1 Gastrostomy status; I08.1 Rheumatic disorders of both mitral and tricuspid valves; I69.322 Dysarthria following cerebral infarction; I69.351 Hemiplegia and hemiparesis following cerebral infarction affecting right dominant side; I69.320 Aphasia following cerebral infarction; I10 Essential (primary) hypertension; N40.1 Benign prostatic hyperplasia with lower urinary tract symptoms; E78.5 Hyperlipidemia, unspecified; R33.9 Retention of urine, unspecified; Z83.3 Family history of diabetes mellitus; Z87.891 Personal history of nicotine dependence; Z89.421 Acquired absence of other right toe(s); Z89.512 Acquired absence of left leg below knee
CPT/HCPCS: 73630; 74230; 80048; 80053; 80202; 82948; 83036; 83605; 83735; 84134; 84484; 85014; 85018; 85025; 85027; 86140; 86850; 86900; 86901; 86920; 87040; 87070; 87075; 87077; 87147; 87186; 87205; 87493; 88307; 88311; 92610 GN; 92611 GN; 93005; 97530 GP; 99281; 99285; A6214; A6242; A6260; J0690; J1100; J1644; J1815; J1885; J2250; J2405; J2543; J2710; J3010; J3370; J3475; J3480; J7030; J7042; J7050; J7643; P9016

== ENCOUNTER 2018-02-25 10:36 | Inpatient (IN) | payer OTHER ==
[~2018-02-25] VITALS: Ht 167.6 cm; Wt 42.7 kg
[~2018-02-25 10:36] MED LIST changes: +CHOLESTYRAMINE P4 GM GT; +KEPPRA100 MG/1 M GT; +LANTUS 3 M100 UNITS1 SC; +LEVEMIR100 UNIT/2 SC; +MELATONIN5 M1 GT; +METFORMIN HCL500 MG GT; +PLAVIX75 MG GT; +TRAMADOL HCL50 MG GT; +TRAZODONE HCL50 MG GT
[2018-02-25 12:24] LABS: HEMOGLOBIN 12.3 G/DL (12.5-16.6); MCH 29.4 PG (29.0-34.0); MCHC 35.1 G/DL (30.0-36.0); MCV 83.7 FL (86-99); PLATELET COUNT 302 K/uL (156-360); RBC DIS.WIDTH-CV 15.9 % (11.8-14.6); RED BLOOD COUNT 4.18 M/uL (4.00-5.50); WHITE BLOOD COUNT 10.6 K/uL (4.1-10.2)
[2018-02-25 12:33] LABS: CHLORIDE 103 mEq/L (99-109); POTASSIUM 5.1 mEq/L (3.7-5.4); SODIUM 131 mEq/L (136-147)
[2018-02-25 12:34] LABS: GLUCOSE 110 mg/dL (70-99)
[2018-02-25 12:38] LABS: CREATININE 0.7 mg/dL (0.6-1.3); GFR ESTIMATE (CALCULATED) > 59 mL/min/ (58.99-99999)
[2018-02-25 12:41] LABS: UREA NITROGEN (BUN) 20 mg/dL (9-23)
[2018-02-25 15:40] LABS: APPEARANCE CLEAR ((CLEAR)); BILIRUBIN NEGATIVE; BLOOD NEGATIVE; COLOR YELLOW ((YELLOW)); GLUCOSE (STRIP) NEGATIVE; KETONES NEGATIVE; LEUKOCYTES NEGATIVE; NITRITE NEGATIVE; PROTEIN (STRIP) NEGATIVE; SPECIFIC GRAVITY 1.009 (1.000-1.030); UCUL ADDED? NO; UROBILINOGEN 0.2 MG/DL (0.2-1.0)
[2018-02-25] MEDS ORDERED: ULTRAM50 MG PO (16:16)
[2018-02-25 17:51] VITALS: BP 114/66
[2018-02-25 19:55] VITALS: BP 127/78
[2018-02-26 00:21] VITALS: BP 117/70
[2018-02-26 05:14] LABS: BASOPHIL (%) 0.3 % (0-1); EOSINOPHIL (%) 1.1 % (0-5); EOSINOPHIL COUNT 0.1 K/uL (0-0.3); HEMATOCRIT 30.2 % (38.0-50.0); HEMOGLOBIN 10.4 G/DL (12.5-16.6); IMMATURE GRANULOCYTE (%) 0.2 % (0.0-0.7); LYMPHOCYTE (%) 12.7 % (15-42); LYMPHOCYTE COUNT 1.2 K/uL (1.0-2.8); MCH 29.1 PG (29.0-34.0); MCHC 34.4 G/DL (30.0-36.0); MCV 84.6 FL (86-99); MONOCYTE (%) 10.5 % (3-12); NEUTROPHIL (%) 75.2 % (45-76); NEUTROPHIL COUNT 7.1 K/uL (1.8-6.4); PLATELET COUNT 269 K/uL (156-360); RBC DIS.WIDTH-CV 16.1 % (11.8-14.6); RBC DIS.WIDTH-SD 49.5 % (39-53); RED BLOOD COUNT 3.57 M/uL (4.00-5.50); WHITE BLOOD COUNT 9.5 K/uL (4.1-10.2)
[2018-02-26 05:58] LABS: ALBUMIN 3.5 G/DL (3.2-4.8); ALKALINE PHOSPHATASE 65 IU/L (3-129); ALT (GPT) 4 IU/L (3-49); AST (GOT) 8 IU/L (2-34); CHLORIDE 107 MEQ/L (99-109); CREATININE 0.4 MG/DL (0.6-1.3); GFR ESTIMATE (CALCULATED) > 59 mL/min/ (58.99-99999); SODIUM 132 MEQ/L (136-147); TOTAL BILIRUBIN 0.2 MG/DL (0.0-1.0); UREA NITROGEN (BUN) 14 mg/dL (9-23)
[2018-02-26 06:03] LABS: GLUCOSE 173 mg/dL (70-99); POTASSIUM 3.6 MEQ/L (3.7-5.4)
[2018-02-26 08:20] VITALS: BP 120/75
[2018-02-26 08:38] LABS: HEMOGLOBIN A1c (GLYCOHEMOGLOB) 5.6 % (Below 5.7)
[2018-02-26 11:15] VITALS: BP 92/50
[2018-02-26 15:52] VITALS: BP 92/53
[2018-02-26 19:00] VITALS: BP 96/54
[2018-02-26 23:53] VITALS: BP 108/53
[2018-02-27 05:21] LABS: HEMATOCRIT 26.4 % (38.0-50.0); MCH 29.3 PG (29.0-34.0); MCHC 34.1 G/DL (30.0-36.0); PLATELET COUNT 218 K/uL (156-360); RBC DIS.WIDTH-CV 16.6 % (11.8-14.6); RBC DIS.WIDTH-SD 51.2 % (39-53); RED BLOOD COUNT 3.07 M/uL (4.00-5.50); WHITE BLOOD COUNT 8.6 K/uL (4.1-10.2)
[2018-02-27 05:45] LABS: CHLORIDE 110 MEQ/L (99-109); CREATININE 0.3 MG/DL (0.6-1.3); GFR ESTIMATE (CALCULATED) > 59 mL/min/ (58.99-99999); GLUCOSE 140 mg/dL (70-99); SODIUM 136 MEQ/L (136-147); UREA NITROGEN (BUN) 10 mg/dL (9-23); VANCOMYCIN, TROUGH 14.1 MCG/ML (10-20)
[2018-02-27 08:54] VITALS: BP 114/66
[2018-02-27 11:32] VITALS: BP 114/58
[2018-02-27 16:06] VITALS: BP 106/57
[2018-02-27 19:00] VITALS: BP 103/58
[2018-02-27 23:45] VITALS: BP 128/81
[2018-02-28 04:03] VITALS: BP 110/68
[2018-02-28 05:35] LABS: HEMATOCRIT 28.1 % (38.0-50.0); HEMOGLOBIN 9.4 G/DL (12.5-16.6); MCH 28.7 PG (29.0-34.0); MCHC 33.5 G/DL (30.0-36.0); MCV 85.7 FL (86-99); PLATELET COUNT 227 K/uL (156-360); RBC DIS.WIDTH-CV 16.8 % (11.8-14.6); RBC DIS.WIDTH-SD 52.5 % (39-53); RED BLOOD COUNT 3.28 M/uL (4.00-5.50); WHITE BLOOD COUNT 9.1 K/uL (4.1-10.2)
[2018-02-28 06:07] LABS: CHLORIDE 103 MEQ/L (99-109); CREATININE 0.3 MG/DL (0.6-1.3); GFR ESTIMATE (CALCULATED) > 59 mL/min/ (58.99-99999); GLUCOSE 139 mg/dL (70-99); POTASSIUM 3.5 MEQ/L (3.7-5.4); SODIUM 133 MEQ/L (136-147); UREA NITROGEN (BUN) 11 mg/dL (9-23)
[2018-02-28 07:38] VITALS: BP 106/60
[2018-02-28 12:29] VITALS: BP 1119/67
[2018-02-28 15:32] VITALS: BP 107/59
[2018-02-28] MEDS ORDERED: LEVAQUIN500 MG PO (17:44)
[2018-02-28 19:30] VITALS: BP 104/60
[2018-02-28 23:26] VITALS: BP 116/69
[2018-03-01 08:00] VITALS: BP 109/64
[2018-03-01 11:45] VITALS: BP 104/60
== END 2018-03-01 13:25 | disposition home or self-care (01) | DRG 194 ==
LOC: EME 10:36 → 4SOUTH 15:53 → EDOF 15:53 → ENRESERV 15:54 → 4SOUTH 17:44
PROVIDERS: Emergency Medicine; Hospitalist; Internal Medicine
DX: J18.9 Pneumonia, unspecified organism (principal); J69.0 Pneumonitis due to inhalation of food and vomit; Y95 Nosocomial condition; I10 Essential (primary) hypertension; E87.1 Hypo-osmolality and hyponatremia; G40.909 Epilepsy, unspecified, not intractable, without status epilepticus; E86.0 Dehydration; E11.51 Type 2 diabetes mellitus with diabetic peripheral angiopathy without gangrene; I42.9 Cardiomyopathy, unspecified; E44.0 Moderate protein-calorie malnutrition; E11.9 Type 2 diabetes mellitus without complications; R47.01 Aphasia; I73.89 Other specified peripheral vascular diseases; R00.0 Tachycardia, unspecified; Z87.891 Personal history of nicotine dependence; E87.2 Acidosis; Z86.73 Personal history of transient ischemic attack (TIA), and cerebral infarction without residual deficits; Z68.1 Body mass index [BMI] 19.9 or less, adult; Z89.611 Acquired absence of right leg above knee; Z89.512 Acquired absence of left leg below knee; Z93.1 Gastrostomy status; Z74.01 Bed confinement status; Z79.84 Long term (current) use of oral hypoglycemic drugs
CPT/HCPCS: 71046; 71250; 80048; 80053; 80202; 81003; 82948; 83036; 83605; 85025; 85027; 87040; 87641; 87801; 99202; 99281; 99285; G0378; J0456; J0692; J1644; J1815; J1956; J3370; J7030; J7050

== ENCOUNTER 2018-03-20 22:40 | Inpatient (IN) | payer OTHER ==
[~2018-03-20] VITALS: Ht 121.9 cm; Wt 41.4 kg
[~2018-03-20 22:40] MED LIST changes: +LEVAQUIN500 MG PO
[2018-03-21 00:15] LABS: BASOPHIL (%) 0.7 % (0-1); EOSINOPHIL COUNT 0.1 K/uL (0-0.3); HEMATOCRIT 27.9 % (38.0-50.0); HEMOGLOBIN 10.2 G/DL (12.5-16.6); IMMATURE GRANULOCYTE (%) 0.3 % (0.0-0.7); LYMPHOCYTE (%) 38.6 % (15-42); LYMPHOCYTE COUNT 2.4 K/uL (1.0-2.8); MCHC 36.6 G/DL (30.0-36.0); MCV 82.1 FL (86-99); MONOCYTE (%) 7.7 % (3-12); MONOCYTE COUNT 0.5 K/uL (0-0.8); NEUTROPHIL (%) 50.7 % (45-76); NEUTROPHIL COUNT 3.1 K/uL (1.8-6.4); PLATELET COUNT 257 K/uL (156-360); RBC DIS.WIDTH-CV 16.4 % (11.8-14.6); RBC DIS.WIDTH-SD 49.7 % (39-53); WHITE BLOOD COUNT 6.1 K/uL (4.1-10.2)
[2018-03-21 00:24] LABS: ALBUMIN 3.5 g/dL (3.2-4.8); CHLORIDE 96 mEq/L (99-109); SODIUM 125 mEq/L (136-147)
[2018-03-21 00:29] LABS: TOTAL BILIRUBIN 0.4 mg/dL (0.0-1.0)
[2018-03-21 00:30] LABS: ALKALINE PHOSPHATASE 74 IU/L (3-129); CREATININE 0.6 mg/dL (0.6-1.3); GFR ESTIMATE (CALCULATED) > 59 mL/min/ (58.99-99999)
[2018-03-21 00:31] LABS: UREA NITROGEN (BUN) 15 mg/dL (9-23)
[2018-03-21 00:32] LABS: AST (GOT) 16 IU/L (2-34)
[2018-03-21 00:33] LABS: ALT (GPT) 12 IU/L (3-49)
[2018-03-21 00:34] LABS: LIPASE 10 U/L (1.0-51.0)
[2018-03-21 00:37] LABS: TROP-I INTERPRETATION NEGATIVE; TROPONIN-I 0.02 ng/mL (0.0-0.30)
[2018-03-21 01:12] LABS: GLUCOSE 57 mg/dL (70-99)
[2018-03-21 01:19] LABS: APPEARANCE CLEAR ((CLEAR)); BILIRUBIN NEGATIVE; BLOOD NEGATIVE; COLOR STRAW ((YELLOW)); GLUCOSE (STRIP) NEGATIVE; KETONES NEGATIVE; LEUKOCYTES NEGATIVE; NITRITE NEGATIVE; PROTEIN (STRIP) NEGATIVE; SPECIFIC GRAVITY 1.004 (1.000-1.030); UCUL ADDED? NO; UROBILINOGEN 0.2 MG/DL (0.2-1.0)
[2018-03-21] MEDS ORDERED: LITE COAT ASPI325 M1 GT (01:53)
[2018-03-21] MEDS ORDERED: PROZAC20 MG GT (01:54)
[2018-03-21] MEDS ORDERED: LANTUS 10100 UNITS/ SC (01:54)
[2018-03-21] MEDS ORDERED: VITAMIN D31000 UNIT GT (01:54)
[2018-03-21] MEDS ORDERED: FOLIC ACID1 MG GT (01:54)
[2018-03-21 05:52] VITALS: BP 82/52
[2018-03-21 08:05] VITALS: BP 115/72
[2018-03-21 11:30] LABS: CHLORIDE 108 MEQ/L (99-109); CREATININE 0.3 MG/DL (0.6-1.3); GFR ESTIMATE (CALCULATED) > 59 mL/min/ (58.99-99999); UREA NITROGEN (BUN) 8 mg/dL (9-23)
[2018-03-21 11:32] LABS: GLUCOSE 81 mg/dL (70-99); POTASSIUM 3.9 MEQ/L (3.7-5.4); SODIUM 134 MEQ/L (136-147)
[2018-03-21 11:58] VITALS: BP 83/52
[2018-03-21 14:24] LABS: CHLORIDE 108 MEQ/L (99-109); CREATININE 0.3 MG/DL (0.6-1.3); GFR ESTIMATE (CALCULATED) > 59 mL/min/ (58.99-99999); GLUCOSE 96 mg/dL (70-99); SODIUM 136 MEQ/L (136-147); UREA NITROGEN (BUN) 7 mg/dL (9-23)
[2018-03-21 15:31] VITALS: BP 80/44
[2018-03-21 18:29] LABS: CHLORIDE 107 MEQ/L (99-109); POTASSIUM 4.3 MEQ/L (3.7-5.4); SODIUM 132 MEQ/L (136-147)
[2018-03-21 18:35] LABS: CREATININE 0.3 MG/DL (0.6-1.3); GFR ESTIMATE (CALCULATED) > 59 mL/min/ (58.99-99999); UREA NITROGEN (BUN) 7 mg/dL (9-23)
[2018-03-21 18:36] LABS: GLUCOSE 231 mg/dL (70-99)
[2018-03-21 20:48] LABS: CHLORIDE 105 MEQ/L (99-109); CREATININE 0.4 MG/DL (0.6-1.3); GFR ESTIMATE (CALCULATED) > 59 mL/min/ (58.99-99999); GLUCOSE 240 mg/dL (70-99); POTASSIUM 3.9 MEQ/L (3.7-5.4); SODIUM 132 MEQ/L (136-147); UREA NITROGEN (BUN) 8 mg/dL (9-23)
[2018-03-21 22:44] LABS: CHLORIDE 104 MEQ/L (99-109); POTASSIUM 3.9 MEQ/L (3.7-5.4); SODIUM 129 MEQ/L (136-147)
[2018-03-21 22:50] LABS: CREATININE 0.3 MG/DL (0.6-1.3); GFR ESTIMATE (CALCULATED) > 59 mL/min/ (58.99-99999); GLUCOSE 243 mg/dL (70-99); UREA NITROGEN (BUN) 7 mg/dL (9-23)
[2018-03-21 23:59] VITALS: BP 89/53
[2018-03-22] VITALS: BP 88/53
[2018-03-22 02:02] LABS: POTASSIUM 3.8 mEq/L (3.7-5.4); SODIUM 134 mEq/L (136-147)
[2018-03-22 02:03] LABS: CHLORIDE 106 mEq/L (99-109)
[2018-03-22 02:04] LABS: GLUCOSE 145 mg/dL (70-99)
[2018-03-22 02:08] LABS: CREATININE 0.5 mg/dL (0.6-1.3); GFR ESTIMATE (CALCULATED) > 59 mL/min/ (58.99-99999)
[2018-03-22 02:09] LABS: UREA NITROGEN (BUN) 6 mg/dL (9-23)
[2018-03-22 05:12] LABS: HEMATOCRIT 25.5 % (38.0-50.0); HEMOGLOBIN 9.1 G/DL (12.5-16.6); MCHC 35.7 G/DL (30.0-36.0); MCV 84.2 FL (86-99); PLATELET COUNT 259 K/uL (156-360); RBC DIS.WIDTH-CV 17.1 % (11.8-14.6); RED BLOOD COUNT 3.03 M/uL (4.00-5.50)
[2018-03-22 05:33] LABS: CHLORIDE 106 MEQ/L (99-109); CREATININE 0.3 MG/DL (0.6-1.3); GFR ESTIMATE (CALCULATED) > 59 mL/min/ (58.99-99999); GLUCOSE 112 mg/dL (70-99); SODIUM 132 MEQ/L (136-147); UREA NITROGEN (BUN) 6 mg/dL (9-23)
[2018-03-22 07:43] VITALS: BP 84/50
[2018-03-22 13:58] LABS: CHLORIDE 104 MEQ/L (99-109); CREATININE 0.3 MG/DL (0.6-1.3); GFR ESTIMATE (CALCULATED) > 59 mL/min/ (58.99-99999); GLUCOSE 125 mg/dL (70-99); POTASSIUM 4.7 MEQ/L (3.7-5.4); SODIUM 135 MEQ/L (136-147); UREA NITROGEN (BUN) 8 mg/dL (9-23)
[2018-03-22 16:10] VITALS: BP 94/55
[2018-03-22 16:18] LABS: CHLORIDE 105 MEQ/L (99-109); POTASSIUM 4.4 MEQ/L (3.7-5.4); SODIUM 133 MEQ/L (136-147)
[2018-03-22 16:30] LABS: CREATININE 0.3 MG/DL (0.6-1.3); GFR ESTIMATE (CALCULATED) > 59 mL/min/ (58.99-99999); GLUCOSE 104 mg/dL (70-99); UREA NITROGEN (BUN) 7 mg/dL (9-23)
[2018-03-22 20:39] VITALS: BP 106/58
[2018-03-23 00:34] VITALS: BP 92/54
[2018-03-23 05:26] LABS: BASOPHIL (%) 0.4 % (0-1); EOSINOPHIL (%) 1.4 % (0-5); EOSINOPHIL COUNT 0.1 K/uL (0-0.3); HEMATOCRIT 25.4 % (38.0-50.0); HEMOGLOBIN 8.8 G/DL (12.5-16.6); IMMATURE GRANULOCYTE (%) 0.3 % (0.0-0.7); LYMPHOCYTE (%) 25.5 % (15-42); LYMPHOCYTE COUNT 1.9 K/uL (1.0-2.8); MCH 29.6 PG (29.0-34.0); MCHC 34.6 G/DL (30.0-36.0); MCV 85.5 FL (86-99); MONOCYTE COUNT 0.4 K/uL (0-0.8); NEUTROPHIL (%) 66.4 % (45-76); NEUTROPHIL COUNT 4.9 K/uL (1.8-6.4); PLATELET COUNT 240 K/uL (156-360); RBC DIS.WIDTH-CV 17.5 % (11.8-14.6); RBC DIS.WIDTH-SD 53.8 % (39-53); RED BLOOD COUNT 2.97 M/uL (4.00-5.50); WHITE BLOOD COUNT 7.3 K/uL (4.1-10.2)
[2018-03-23 05:58] LABS: CHLORIDE 104 MEQ/L (99-109); CREATININE 0.3 MG/DL (0.6-1.3); GFR ESTIMATE (CALCULATED) > 59 mL/min/ (58.99-99999); GLUCOSE 104 mg/dL (70-99); SODIUM 136 MEQ/L (136-147); UREA NITROGEN (BUN) 7 mg/dL (9-23)
[2018-03-23 07:00] VITALS: BP 93/51
[2018-03-23 07:55] LABS: THYROTROPIN (TSH) 0.49 MIU/L (0.4-5.5)
[2018-03-23 11:43] VITALS: BP 119/56
[2018-03-23 14:14] LABS: UR CREATININE CONCENTRATION 29.3 MG/DL
[2018-03-23 15:25] LABS: HEMATOCRIT 27.2 % (38.0-50.0); HEMOGLOBIN 9.5 G/DL (12.5-16.6); MCH 30.4 PG (29.0-34.0); MCHC 34.9 G/DL (30.0-36.0); MCV 87.2 FL (86-99); PLATELET COUNT 239 K/uL (156-360); RBC DIS.WIDTH-CV 17.9 % (11.8-14.6); RBC DIS.WIDTH-SD 56.2 % (39-53); RED BLOOD COUNT 3.12 M/uL (4.00-5.50)
[2018-03-23 15:50] LABS: ALBUMIN 3.1 G/DL (3.2-4.8); ALKALINE PHOSPHATASE 88 IU/L (3-129); ALT (GPT) 73 IU/L (3-49); AST (GOT) 50 IU/L (2-34); CHLORIDE 98 MEQ/L (99-109); CREATININE 0.3 MG/DL (0.6-1.3); GFR ESTIMATE (CALCULATED) > 59 mL/min/ (58.99-99999); GLUCOSE 213 mg/dL (70-99); POTASSIUM 4.3 MEQ/L (3.7-5.4); SODIUM 131 MEQ/L (136-147); TOTAL BILIRUBIN 0.2 MG/DL (0.0-1.0); TOTAL PROTEIN 7.1 G/DL (6.4-8.3); UREA NITROGEN (BUN) 8 mg/dL (9-23)
[2018-03-23 17:07] VITALS: BP 95/56
[2018-03-23 20:50] VITALS: BP 100/56
[2018-03-24 00:13] VITALS: BP 96/50
[2018-03-24 05:44] VITALS: BP 98/54
[2018-03-24 05:51] LABS: BASOPHIL (%) 0.3 % (0-1); EOSINOPHIL COUNT 0.1 K/uL (0-0.3); HEMATOCRIT 23.5 % (38.0-50.0); IMMATURE GRANULOCYTE (%) 0.2 % (0.0-0.7); LYMPHOCYTE (%) 24.3 % (15-42); LYMPHOCYTE COUNT 1.5 K/uL (1.0-2.8); MCH 29.9 PG (29.0-34.0); MCV 87.7 FL (86-99); MONOCYTE (%) 7.7 % (3-12); MONOCYTE COUNT 0.5 K/uL (0-0.8); NEUTROPHIL (%) 66.5 % (45-76); PLATELET COUNT 206 K/uL (156-360); RBC DIS.WIDTH-CV 17.9 % (11.8-14.6); RBC DIS.WIDTH-SD 57.1 % (39-53); RED BLOOD COUNT 2.68 M/uL (4.00-5.50)
[2018-03-24 06:17] LABS: CHLORIDE 102 MEQ/L (99-109); CREATININE 0.3 MG/DL (0.6-1.3); GFR ESTIMATE (CALCULATED) > 59 mL/min/ (58.99-99999); POTASSIUM 3.8 MEQ/L (3.7-5.4); UREA NITROGEN (BUN) 8 mg/dL (9-23)
[2018-03-24 06:18] LABS: GLUCOSE 116 mg/dL (70-99); SODIUM 138 MEQ/L (136-147)
[2018-03-24 08:03] VITALS: BP 98/55
[2018-03-24 12:05] VITALS: BP 103/74
[2018-03-24 19:27] VITALS: BP 118/64
[2018-03-25 00:06] VITALS: BP 96/51
[2018-03-25 05:36] LABS: CHLORIDE 104 MEQ/L (99-109); CREATININE 0.2 MG/DL (0.6-1.3); GFR ESTIMATE (CALCULATED) > 59 mL/min/ (58.99-99999); GLUCOSE 96 mg/dL (70-99); POTASSIUM 3.8 MEQ/L (3.7-5.4); SODIUM 138 MEQ/L (136-147); UREA NITROGEN (BUN) 10 mg/dL (9-23)
[2018-03-25] MEDS ORDERED: MIDODRINE HCL5 MG GT (09:07)
[2018-03-25] MEDS ORDERED: KEPPRA500 MG PO (09:08)
[2018-03-25 12:13] VITALS: BP 118/58
== END 2018-03-25 17:38 | disposition home health service (06) | DRG 640 ==
LOC: EME → EDBD 22:40 → EME 22:40 → EDOF 03-21 03:16 → 4SOUTH 03-21 03:16 → ENRESERV 03-21 03:32 → 4SOUTH 03-21 05:30
PROVIDERS: Emergency Medicine; Hospitalist; Internal Medicine; Internal Medicine Nephrology
DX: E87.1 Hypo-osmolality and hyponatremia (principal); G93.40 Encephalopathy, unspecified; I69.351 Hemiplegia and hemiparesis following cerebral infarction affecting right dominant side; R47.01 Aphasia; E86.0 Dehydration; E11.649 Type 2 diabetes mellitus with hypoglycemia without coma; E87.0 Hyperosmolality and hypernatremia; E87.6 Hypokalemia; I95.9 Hypotension, unspecified; Z93.1 Gastrostomy status; I69.391 Dysphagia following cerebral infarction; R13.10 Dysphagia, unspecified; I69.320 Aphasia following cerebral infarction; I69.321 Dysphasia following cerebral infarction; R47.02 Dysphasia; D64.9 Anemia, unspecified; E11.51 Type 2 diabetes mellitus with diabetic peripheral angiopathy without gangrene; G93.89 Other specified disorders of brain; I10 Essential (primary) hypertension; G40.409 Other generalized epilepsy and epileptic syndromes, not intractable, without status epilepticus; I69.322 Dysarthria following cerebral infarction; Z79.4 Long term (current) use of insulin; Z74.01 Bed confinement status; Z89.511 Acquired absence of right leg below knee; Z89.512 Acquired absence of left leg below knee; Z79.82 Long term (current) use of aspirin; Z87.891 Personal history of nicotine dependence
CPT/HCPCS: 70450; 71045; 74230; 80048; 80048 91; 80053; 81003; 82533 91; 82570; 82948; 83605; 83690; 83930; 83935; 84300; 84439; 84443; 84481; 84484; 85025; 85027; 87040; 92610 GN; 92611 GN; 93306; 99281; 99285; J1953; J7030; J7050; J7060; J7070